=== PATIENT | female | born 1930 | race Caucasian/White ===

== ENCOUNTER → 2017-03-14 | Outpatient (CLI) | payer OTHER ==
[~2017-03-14] MED LIST: AMLODIPINE BES2.5 MG PO; LOSARTAN-HCTZ1 EACH PO; OYSTER SHELL 51 EACH PO; PRAVASTATIN SOD20 MG PO; TYLENOL EXTRA500 MG PO
== END | disposition home or self-care (01) ==
LOC: RAD 13:05 → NUC 13:05
DX: I48.3 Typical atrial flutter (principal)
CPT/HCPCS: 71020; 78582; A9540; A9567

== ENCOUNTER 2017-08-31 14:34 | Inpatient (IN) | payer OTHER ==
[~2017-08-31] VITALS: Ht 152.4 cm; Wt 64.2 kg
[2017-08-31 15:54] LABS: BASOPHIL (%) 0.5 % (0-1); EOSINOPHIL (%) 0.7 % (0-5); EOSINOPHIL COUNT 0.1 K/uL (0-0.3); HEMATOCRIT 33.6 % (36.0-46.0); HEMOGLOBIN 11.2 G/DL (11.9-15.5); IMMATURE GRANULOCYTE (%) 0.1 % (0.0-0.7); LYMPHOCYTE (%) 11.1 % (15-42); LYMPHOCYTE COUNT 0.9 K/uL (1.0-2.8); MCHC 33.3 G/DL (30.0-36.0); MCV 93.1 FL (83-99); MONOCYTE (%) 7.9 % (3-12); MONOCYTE COUNT 0.6 K/uL (0-0.8); NEUTROPHIL (%) 79.7 % (45-76); NEUTROPHIL COUNT 6.1 K/uL (1.8-6.4); PLATELET COUNT 232 K/uL (156-360); RBC DIS.WIDTH-SD 44.6 % (39-53); RED BLOOD COUNT 3.61 M/uL (3.80-5.20); WHITE BLOOD COUNT 7.6 K/uL (4.1-10.2)
[2017-08-31 16:04] LABS: ALBUMIN 3.5 g/dL (3.2-4.8); CHLORIDE 103 mEq/L (99-109); POTASSIUM 5.1 mEq/L (3.7-5.4); SODIUM 136 mEq/L (136-147)
[2017-08-31 16:06] LABS: GLUCOSE 102 mg/dL (70-99)
[2017-08-31 16:07] LABS: TOTAL PROTEIN 6.4 g/dL (6.4-8.3)
[2017-08-31 16:08] LABS: TOTAL BILIRUBIN 0.7 mg/dL (0.0-1.0)
[2017-08-31 16:10] LABS: ALKALINE PHOSPHATASE 51 IU/L (3-129); CREATININE 0.9 mg/dL (0.6-1.3); GFR ESTIMATE (CALCULATED) > 59 mL/min/
[2017-08-31 16:11] LABS: UREA NITROGEN (BUN) 39 mg/dL (9-23)
[2017-08-31 16:12] LABS: AST (GOT) 18 IU/L (2-34); DIRECT BILIRUBIN 0.3 mg/dL (0.0-0.3)
[2017-08-31 16:13] LABS: ALT (GPT) 12 IU/L (3-49); LIPASE 44 U/L (1.0-51.0)
[2017-08-31 17:00] LABS: BASOPHIL (%) 0.4 % (0-1); EOSINOPHIL (%) 0.4 % (0-5); HEMATOCRIT 30.1 % (36.0-46.0); HEMOGLOBIN 9.9 G/DL (11.9-15.5); IMMATURE GRANULOCYTE (%) 0.4 % (0.0-0.7); LYMPHOCYTE (%) 14.6 % (15-42); LYMPHOCYTE COUNT 1.1 K/uL (1.0-2.8); MCH 30.8 PG (29.0-34.0); MCHC 32.9 G/DL (30.0-36.0); MCV 93.8 FL (83-99); MONOCYTE (%) 5.9 % (3-12); MONOCYTE COUNT 0.5 K/uL (0-0.8); NEUTROPHIL (%) 78.3 % (45-76); PLATELET COUNT 206 K/uL (156-360); RBC DIS.WIDTH-CV 13.1 % (11.8-14.6); RBC DIS.WIDTH-SD 44.8 % (39-53); RED BLOOD COUNT 3.21 M/uL (3.80-5.20); WHITE BLOOD COUNT 7.6 K/uL (4.1-10.2)
[2017-08-31] MEDS ORDERED: METOPROLOL TART25 MG PO (17:25)
[2017-08-31] MEDS ORDERED: ELIQUIS5 MG PO (17:25)
[2017-08-31] MEDS ORDERED: POTASSIUM CHLO10 ME3 PO (17:25)
[2017-08-31] MEDS ORDERED: VITAMIN D32000 UNI1 PO (17:26)
[2017-08-31 18:52] LABS: APPEARANCE CLEAR ((CLEAR)); BILIRUBIN NEGATIVE; BLOOD NEGATIVE; COLOR YELLOW ((YELLOW)); GLUCOSE (STRIP) NEGATIVE; KETONES 5; LEUKOCYTES NEGATIVE; NITRITE NEGATIVE; PROTEIN (STRIP) NEGATIVE; UROBILINOGEN 0.2 MG/DL (0.2-1.0)
[2017-08-31 20:05] VITALS: BP 123/58
[2017-08-31 20:07] VITALS: BP 123/58
[2017-08-31 21:40] LABS: HEMATOCRIT 24.2 % (36.0-46.0)
[2017-08-31 21:45] VITALS: BP 116/58
[2017-08-31 21:50] LABS: INTER. NORMALIZED RATIO 1.5
[2017-08-31 21:53] LABS: PTT 26.9 SEC (25-37)
[2017-08-31 22:10] VITALS: BP 116/65
[2017-08-31 23:21] VITALS: BP 102/58
[2017-08-31 23:58] VITALS: BP 106/65
[2017-09-01] VITALS (13 sets, daily range): BP systolic 107–142; BP diastolic 57–87
[2017-09-01 08:33] LABS: BASOPHIL (%) 0.6 % (0-1); EOSINOPHIL (%) 0.4 % (0-5); HEMATOCRIT 26.3 % (36.0-46.0); HEMOGLOBIN 8.8 G/DL (11.9-15.5); IMMATURE GRANULOCYTE (%) 0.4 % (0.0-0.7); LYMPHOCYTE (%) 26.1 % (15-42); LYMPHOCYTE COUNT 1.3 K/uL (1.0-2.8); MCH 30.1 PG (29.0-34.0); MCHC 33.5 G/DL (30.0-36.0); MCV 90.1 FL (83-99); MONOCYTE (%) 11.2 % (3-12); MONOCYTE COUNT 0.5 K/uL (0-0.8); NEUTROPHIL (%) 61.3 % (45-76); PLATELET COUNT 147 K/uL (156-360); RBC DIS.WIDTH-CV 14.1 % (11.8-14.6); RBC DIS.WIDTH-SD 46.1 % (39-53); RED BLOOD COUNT 2.92 M/uL (3.80-5.20); WHITE BLOOD COUNT 4.8 K/uL (4.1-10.2)
[2017-09-01 08:52] LABS: INTER. NORMALIZED RATIO 1.2
[2017-09-01 08:55] LABS: ALBUMIN 3.5 G/DL (3.2-4.8); ALKALINE PHOSPHATASE 46 IU/L (3-129); ALT (GPT) 10 IU/L (3-49); AST (GOT) 15 IU/L (2-34); CHLORIDE 110 MEQ/L (99-109); CREATININE 0.8 MG/DL (0.6-1.3); GFR ESTIMATE (CALCULATED) > 59 mL/min/; GLUCOSE 84 mg/dL (70-99); TOTAL BILIRUBIN 1.1 MG/DL (0.0-1.0); TOTAL PROTEIN 5.7 G/DL (6.4-8.3); UREA NITROGEN (BUN) 34 mg/dL (9-23)
[2017-09-01 08:58] LABS: POTASSIUM 3.7 MEQ/L (3.7-5.4); SODIUM 143 MEQ/L (136-147)
[2017-09-01 10:45] LABS: HEMATOCRIT 25.3 % (36.0-46.0); HEMOGLOBIN 8.6 G/DL (11.9-15.5); MCH 30.5 PG (29.0-34.0); MCV 89.7 FL (83-99); PLATELET COUNT 144 K/uL (156-360); RBC DIS.WIDTH-CV 14.2 % (11.8-14.6); RBC DIS.WIDTH-SD 46.5 % (39-53); RED BLOOD COUNT 2.82 M/uL (3.80-5.20); WHITE BLOOD COUNT 4.5 K/uL (4.1-10.2)
[2017-09-01 16:25] LABS: BASOPHIL (%) 0.6 % (0-1); EOSINOPHIL COUNT 0.1 K/uL (0-0.3); HEMATOCRIT 24.5 % (36.0-46.0); HEMOGLOBIN 8.3 G/DL (11.9-15.5); IMMATURE GRANULOCYTE (%) 0.4 % (0.0-0.7); LYMPHOCYTE COUNT 1.5 K/uL (1.0-2.8); MCH 30.2 PG (29.0-34.0); MCHC 33.9 G/DL (30.0-36.0); MCV 89.1 FL (83-99); MONOCYTE (%) 11.2 % (3-12); MONOCYTE COUNT 0.6 K/uL (0-0.8); NEUTROPHIL (%) 56.8 % (45-76); NEUTROPHIL COUNT 2.9 K/uL (1.8-6.4); PLATELET COUNT 147 K/uL (156-360); RBC DIS.WIDTH-CV 14.6 % (11.8-14.6); RBC DIS.WIDTH-SD 46.7 % (39-53); RED BLOOD COUNT 2.75 M/uL (3.80-5.20); WHITE BLOOD COUNT 5.1 K/uL (4.1-10.2)
[2017-09-01 21:02] LABS: STOOL OCCULT BLD 1ST SPECIMEN POSITIVE
[2017-09-01 21:59] LABS: C DIFF TOXIN NEGATIVE (NEGATIVE)
[2017-09-02 00:58] LABS: BASOPHIL (%) 0.5 % (0-1); EOSINOPHIL COUNT 0.1 K/uL (0-0.3); HEMOGLOBIN 8.8 G/DL (11.9-15.5); IMMATURE GRANULOCYTE (%) 0.6 % (0.0-0.7); LYMPHOCYTE (%) 12.2 % (15-42); MCH 30.6 PG (29.0-34.0); MCHC 33.8 G/DL (30.0-36.0); MCV 90.3 FL (83-99); MONOCYTE (%) 6.6 % (3-12); MONOCYTE COUNT 0.5 K/uL (0-0.8); NEUTROPHIL (%) 79.1 % (45-76); NEUTROPHIL COUNT 6.4 K/uL (1.8-6.4); PLATELET COUNT 149 K/uL (156-360); RBC DIS.WIDTH-CV 14.7 % (11.8-14.6); RBC DIS.WIDTH-SD 48.2 % (39-53); RED BLOOD COUNT 2.88 M/uL (3.80-5.20)
[2017-09-02 03:57] VITALS: BP 136/78
[2017-09-02 07:21] LABS: BASOPHIL (%) 0.7 % (0-1); EOSINOPHIL (%) 1.6 % (0-5); EOSINOPHIL COUNT 0.1 K/uL (0-0.3); HEMOGLOBIN 8.8 G/DL (11.9-15.5); IMMATURE GRANULOCYTE (%) 0.4 % (0.0-0.7); LYMPHOCYTE (%) 17.2 % (15-42); MCH 30.3 PG (29.0-34.0); MCHC 32.6 G/DL (30.0-36.0); MCV 93.1 FL (83-99); MONOCYTE (%) 8.4 % (3-12); MONOCYTE COUNT 0.5 K/uL (0-0.8); NEUTROPHIL (%) 71.7 % (45-76); NEUTROPHIL COUNT 4.1 K/uL (1.8-6.4); PLATELET COUNT 153 K/uL (156-360); RBC DIS.WIDTH-CV 14.8 % (11.8-14.6); WHITE BLOOD COUNT 5.7 K/uL (4.1-10.2)
[2017-09-02 07:38] LABS: TROP-I INTERPRETATION NEGATIVE; TROPONIN-I < 0.01 ng/mL (0.0-0.30)
[2017-09-02 07:46] LABS: ALBUMIN 3.6 G/DL (3.2-4.8); ALKALINE PHOSPHATASE 49 IU/L (3-129); ALT (GPT) 9 IU/L (3-49); AST (GOT) 16 IU/L (2-34); CHLORIDE 112 MEQ/L (99-109); CREATININE 0.6 MG/DL (0.6-1.3); GFR ESTIMATE (CALCULATED) > 59 mL/min/; GLUCOSE 89 mg/dL (70-99); POTASSIUM 3.4 MEQ/L (3.7-5.4); SODIUM 146 MEQ/L (136-147); TOTAL BILIRUBIN 0.6 MG/DL (0.0-1.0); TOTAL PROTEIN 6.1 G/DL (6.4-8.3); UREA NITROGEN (BUN) 19 mg/dL (9-23)
[2017-09-02 08:21] VITALS: BP 142/60
[2017-09-02 13:16] LABS: STOOL OCCULT BLD 1ST SPECIMEN POSITIVE
[2017-09-02 15:04] VITALS: BP 132/63
[2017-09-02 19:56] VITALS: BP 112/55
[2017-09-03 00:38] VITALS: BP 114/51
[2017-09-03 04:30] VITALS: BP 139/56
[2017-09-03 05:35] LABS: BASOPHIL (%) 0.6 % (0-1); EOSINOPHIL COUNT 0.1 K/uL (0-0.3); HEMATOCRIT 24.8 % (36.0-46.0); HEMOGLOBIN 8.2 G/DL (11.9-15.5); IMMATURE GRANULOCYTE (%) 0.4 % (0.0-0.7); LYMPHOCYTE (%) 11.6 % (15-42); LYMPHOCYTE COUNT 0.8 K/uL (1.0-2.8); MCH 31.2 PG (29.0-34.0); MCHC 33.1 G/DL (30.0-36.0); MCV 94.3 FL (83-99); MONOCYTE (%) 10.1 % (3-12); MONOCYTE COUNT 0.7 K/uL (0-0.8); NEUTROPHIL (%) 76.3 % (45-76); NEUTROPHIL COUNT 5.1 K/uL (1.8-6.4); PLATELET COUNT 156 K/uL (156-360); RBC DIS.WIDTH-CV 14.9 % (11.8-14.6); RBC DIS.WIDTH-SD 51.4 % (39-53); RED BLOOD COUNT 2.63 M/uL (3.80-5.20); WHITE BLOOD COUNT 6.7 K/uL (4.1-10.2)
[2017-09-03 06:06] LABS: CHLORIDE 112 MEQ/L (99-109); CREATININE 0.7 MG/DL (0.6-1.3); GFR ESTIMATE (CALCULATED) > 59 mL/min/; GLUCOSE 108 mg/dL (70-99); SODIUM 141 MEQ/L (136-147); UREA NITROGEN (BUN) 14 mg/dL (9-23)
[2017-09-03 06:11] LABS: POTASSIUM 4.6 MEQ/L (3.7-5.4)
[2017-09-03 08:03] VITALS: BP 143/73
[2017-09-03 11:35] VITALS: BP 127/76
[2017-09-03 16:09] VITALS: BP 142/65
[2017-09-03 23:34] VITALS: BP 108/57
[2017-09-04 08:00] VITALS: BP 134/80
[2017-09-04 12:00] VITALS: BP 138/75
[2017-09-04 12:21] LABS: HEMATOCRIT 26.3 % (36.0-46.0); HEMOGLOBIN 8.7 G/DL (11.9-15.5); MCV 95.6 FL (83-99)
[2017-09-04] MEDS ORDERED: LOPRESSOR50 MG PO (12:59)
[2017-09-04] MEDS ORDERED: PANTOPRAZOLE SO40 MG PO (13:00)
== END 2017-09-04 13:59 | disposition home health service (06) | DRG 379 ==
LOC: EME 14:34 → 3EAST 16:48 → EDOF 16:48 → ENRESERV 16:50 → CANRESERV 16:50 → ENRESERV 16:52 → 3EAST 19:48
PROVIDERS: Anesthesiology; Emergency Medicine; Hospitalist; Nurse Practitioner Adult Health; Physician Assistant; Specialist
DX: K25.4 Chronic or unspecified gastric ulcer with hemorrhage (principal); I10 Essential (primary) hypertension; I48.2 Chronic atrial fibrillation; K57.30 Diverticulosis of large intestine without perforation or abscess without bleeding; K64.8 Other hemorrhoids; D50.0 Iron deficiency anemia secondary to blood loss (chronic); E78.5 Hyperlipidemia, unspecified; M06.9 Rheumatoid arthritis, unspecified; E66.9 Obesity, unspecified; Z68.27 Body mass index [BMI] 27.0-27.9, adult; Z79.01 Long term (current) use of anticoagulants; Z90.49 Acquired absence of other specified parts of digestive tract; Z98.51 Tubal ligation status
CPT/HCPCS: 71010; 80048; 80048 91; 80053; 80076; 81003; 82272; 83690; 84484; 85014; 85018; 85025; 85025 91; 85027; 85610; 85730; 86850; 86900; 86901; 86920; 87177; 87493; 93005; 99202; 99281; 99285; C9113; J3480; J7030; P9016; P9017